=== PATIENT | male | born 1970 | race Caucasian/White ===

== ENCOUNTER 2019-01-08 09:38 | Inpatient (IN) | payer OTHER ==
[2019-01-08 11:10] VITALS: BMI 35.5
--- NOTE | 2019-01-08 11:59 | HP ---
CIWA Score Nausea/Vomitin-No Nausea/No Vomiting Muscle Tremors: 4-Moderate,w/Arms Extend Anxiety: 3 Agitation: 3 Paroxysmal Sweats: 3 Orientation: 0-Oriented Tacttile Disturbances: 0-None Auditory Disturbances: 0-None Visual Disturbances: 0-None Headache: 2-Mild CIWA-Ar Total Score: 15 - Admission Criteria OASAS Guidelines: Admission for Medically Managed Detox: Requires at least one of the followin. CIWA greater than 12 2. Seizures within the past 24 hours 3. Delirium tremens within the past 24 hours 4. Hallucinations within the past 24 hours 5. Acute intervention needed for co occurring medical disorder 6. Acute intervention needed for co occurring psychiatric disorder 7. Severe withdrawal that cannot be handled at a lower level of care (continued vomiting, continued diarrhea, abnormal vital signs) requiring intravenous medication and/or fluids 8. Admission ROS [facility] - HPI Chief Complaint: I need detox. I need help. Allergies/Adverse Reactions: Allergies Allergy/AdvReac Type Severity Reaction Status Date / Time No Known Allergies Allergy Verified 01/08/19 10:52 History of Present Illness: pt is a 48yrold male with a history of alcohol dependence seeking detox for treatment. Pt states he was [facility] ER for detox from alcohol and d/c today and brought inhere from our outreach drivers. Exam Limitations: No Limitations - Ebola screening Have you traveled outside of the country in the last 21 days: No Have you had contact with anyone from an Ebola affected area: No Have you been sick,other than usual withdrawal symptoms: No Do you have a fever: No - Review of Systems Constitutional: Chills, Night Sweats, Changes in sleep EENT: reports: Other (gestational nasal tube dysfuction) Respiratory: reports: No Symptoms reported Cardiac: reports: Syncope GI: reports: Poor Appetite, Poor Fluid Intake : reports: No Symptoms Reported Musculoskeletal: reports: No Symptoms Reported Integumentary: reports: Flushing, Sweating Neuro: reports: Headache, Tingling, Tremors Endocrine: reports: Flushing, Intolerance to Cold, Intolerance to Heat Hematology: reports: No Symptoms Reported Psychiatric: reports: Judgement Intact, Mood/Affect Appropiate, Orientated x3, Agitated, Anxious Other Systems: Reviewed and Negative Patient History - Patient Medical History Hx Anemia: No Hx Asthma: No Hx Chronic Obstructive Pulmonary Disease (COPD): No Hx Cancer: No Hx Cardiac Disorders: No Hx Congestive Heart Failure: No Hx Hypertension: No Hx Hypercholesterolemia: No Hx Pacemaker: No HX Cerebrovascular Accident: No Hx Seizures: No Hx Dementia: No Hx Diabetes: No Hx Gastrointestinal Disorders: No Hx Liver Disease: No Hx Genitourinary Disorders: No Hx Sexually Transmitted Disorders: No Hx Renal Disease (ESRD): No Hx Thyroid Disease: No Hx Human Immunodeficiency Virus (HIV): No Hx Hepatitis C: No Hx Depression: Yes Hx Suicide Attempt: Yes (teenager no S/H ideation today. ) Hx Bipolar Disorder: No Hx Schizophrenia: Yes Other Medical History: PTSD - Patient Surgical History Past Surgical History: Yes Other Surgical History: torn b/l biceps 2017 - PPD History Previous Implant?: No Documented Results: Positive w/o proof Implanted On Prior [facility] Admission?: No PPD to be Administered?: No - Reproductive History Patient is a Female of Child Bearing Age (11 -55 yrs old): No - Smoking Cessation Smoking history: Current every day smoker Have you smoked in the past 12 months: Yes Aproximately how many cigarettes per day: 10 Hx Chewing Tobacco Use: No Initiated information on smoking cessation: Yes 'Breaking Loose' booklet given: 01/08/19 - Substance & Tx. History Hx Alcohol Use: Yes Hx Substance Use: Yes Substance Use Type: Alcohol, Cocaine Hx Substance Use Treatment: Yes (last detox 15yrs ago) - Substances abused Alcohol Substance route: Oral Frequency: Daily Amount used: 1 1/2 bottle whisky Age of first use: 16 Date of last use: 01/07/19 Cocaine Substance route: Smoking Frequency: Daily Amount used: 2 BAGS Age of first use: 16 Date of last use: 01/06/19 Family Disease History - Family Disease History Family History: Denies Family Disease History: CA: Father (in remission), Sister (in remission) Admission Physical Exam BHS - Vital Signs Vital Signs: Vital Signs - 24 hr 01/08/19 10:54 Temperature 97.0 F L Pulse Rate 84 Respiratory 18 Rate Blood Pressure 131/86 - Physical General Appearance: Yes: Appropriately Dressed, Moderate Distress, Obese, Tremorous, Irritable, Sweating HEENTM: Yes: Hearing grossly Normal, Normal Voice, Rhinorrhea Respiratory: Yes: Lungs Clear, Normal Breath Sounds, No Respiratory Distress Neck: Yes: No masses,lesions,Nodules Breast: Yes: Within Normal Limits Cardiology: Yes: Regular Rhythm, Regular Rate, S1, S2 Abdominal: Yes: Normal Bowel Sounds, Non Tender, Soft Genitourinary: Yes: Within Normal Limits Back: Yes: Normal Inspection Musculoskeletal: Yes: Gait Steady, Back pain Extremities: Yes: Normal Capillary Refill, Non-Tender, Tremors Neurological: Yes: Fully Oriented, Alert, Normal Response Integumentary: Yes: Normal Color Lymphatic: Yes: Within Normal Limits - Diagnostic (1) Alcohol dependence with uncomplicated withdrawal Current Visit: Yes Status: Chronic (2) Nicotine dependence Current Visit: Yes Status: Chronic Qualifiers: Nicotine product type: cigarettes Substance use status: uncomplicated Qualified Code(s): F17.210 - Nicotine dependence, cigarettes, uncomplicated Cleared for Admission [facility] - Detox or Rehab [facility] Level of Care: Medically Managed Detox Regimen/Protocol: Librium Claeared for Rehab Admission: No Breathalyzer - Breathalyzer Breathalyzer: 0 Urine Drug Screen - Test Device Lot number: [id number] Expiration date: 09/01/20 - Control Is test valid?: Yes - Results Drug screen NEGATIVE: No Urine drug screen results: THC-Marijuana, KAILEY-Cocaine, OXY-Oxycodone, BZO- Benzodiazepines Inpatient Rehab Admission - Rehab Decision to Admit Inpatient rehab admission?: No
[2019-01-08] MEDS ORDERED: ONDANSETRON *ODT* 4 MG TABLET SL PRN (12:14)
[2019-01-08] MEDS ORDERED: BISMUTH SUBSALICYLATE 262 MG/15 ML BTL PO PRN (12:14)
[2019-01-08] MEDS ORDERED: MAGNESIUM CITRATE 300 ML BOTTLE PO PRN (12:14)
[2019-01-08] MEDS ORDERED: MAGNESIUM HYDROX 2400MG/30ML ORAL SUSPENSION 30 ML CUP PO PRN (12:14)
[2019-01-08] MEDS ORDERED: ACETAMINOPHEN 325 MG TABLET (FP) PO PRN ×2 (12:14)
[2019-01-08] MEDS ORDERED: hydrOXYzine PAMOATE 25 MG CAPSULE (FP) PO PRN (12:14)
[2019-01-08] MEDS ORDERED: DICYCLOMINE HCL 10 MG CAPSULE PO PRN (12:14)
[2019-01-08] MEDS ORDERED: MAG HYDROX/AL HYDROX/SIMETH 30 ML UNIT-DOSE CUP PO PRN (12:14)
[2019-01-08] MEDS ORDERED: NICOTINE POLACRILEX 4 MG GUM BUC PRN (12:14)
[2019-01-08] MEDS ORDERED: chlordiazePOXIDE HCL 10 MG CAPSULE PO PRN (12:14)
[2019-01-08] MEDS ORDERED: MENTHOL/PHENOL 1 EACH UD MM PRN (12:14)
[2019-01-08] MEDS: chlordiazePOXIDE HCL 25 MG CAPSULE PO SCH ×2 (13:52→22:25)
[2019-01-08] MEDS: METHOCARBAMOL 500 MG TABLET PO PRN ×2 (13:54→22:27)
[2019-01-08 17:12] LABS: HEMATOCRIT 43.1 % (35.4-49); HEMOGLOBIN 14.3 GM/dL (11.7-16.9); MCH 30.1 pg (25.7-33.7); MCHC 33.1 g/dl (32.0-35.9); MEAN CELL VOLUME 90.9 fl (80-96); MEAN PLT VOLUME 9.6 fl (7.5-11.1); PLATELET COUNT 210 K/MM3 (134-434); RBC 4.74 M/mm3 (4.00-5.60); RDW 14.4 % (11.9-15.9); WHITE BLOOD COUNT 8.9 K/mm3 (4.0-10.0)
[2019-01-08 17:19] LABS: ALBUMIN 3.8 g/dl (3.4-5.0); ALK PHOS 69 U/L (45-117); ANION GAP 7 MMOL/L (8-16); BILIRUBIN,TOTAL 0.5 mg/dL (0.2-1); BLOOD UREA NITROGEN 16 mg/dL (7-18); CALCIUM 8.7 mg/dL (8.5-10.1); CHLORIDE 102 mmol/L (98-107); CO2 27 mmol/L (21-32); CREATININE 0.8 mg/dL (0.55-1.3); GLUCOSE,RANDOM 88 mg/dL (74-106); POTASSIUM 4.3 mmol/L (3.5-5.1); SGOT/AST 15 U/L (15-37); SGPT/ALT 20 U/L (13-61); SODIUM 137 mmol/L (136-145); TOT PROT 7.4 g/dl (6.4-8.2)
[2019-01-08] MEDS: MELATONIN 5 MG TABLETS PO PRN (22:25)
[2019-01-08] MEDS: THIAMINE HCL 100 MG TABLET (FP) PO SCH (22:25)
[2019-01-09] MEDS: chlordiazePOXIDE HCL 25 MG CAPSULE PO SCH (06:25)
[2019-01-09] MEDS: PRENATAL VITAMINS W/ FOLIC ACID TABLET (FP) PO SCH (10:23)
[2019-01-09] MEDS: NICOTINE 21 MG/24 HOURS TOPICAL PATCH TD SCH (10:23)
--- NOTE | 2019-01-09 11:25 | PN ---
[facility] CIWA - CIWA Score Nausea/Vomitin-Mild Nausea/No Vomiting Muscle Tremors: 3 Anxiety: 2 Agitation: 2 Paroxysmal Sweats: 1-Minimal Palms Moist Orientation: 1-Uncertain about Date Tacttile Disturbances: 0-None Auditory Disturbances: 0-None Visual Disturbances: 0-None Headache: 1-Very Mild CIWA-Ar Total Score: 11 [facility] Progress Note (SOAP) Subjective: mild muscle cramping encourage muscle relaxant prn Objective: 01/09/19 11:25 Vital Signs Temperature 97.5 F L 01/09/19 09:11 Pulse Rate 74 01/09/19 09:11 Respiratory Rate 18 01/09/19 09:11 Blood Pressure 116/80 01/09/19 09:11 O2 Sat by Pulse Oximetry (%) Laboratory Last Values WBC 8.9 K/mm3 (4.0-10.0) 01/08/19 12:25 RBC 4.74 M/mm3 (4.00-5.60) 01/08/19 12:25 Hgb 14.3 GM/dL (11.7-16.9) 01/08/19 12:25 Hct 43.1 % (35.4-49) 01/08/19 12:25 MCV 90.9 fl (80-96) 01/08/19 12:25 MCH 30.1 pg (25.7-33.7) 01/08/19 12:25 MCHC 33.1 g/dl (32.0-35.9) 01/08/19 12:25 RDW 14.4 % (11.9-15.9) 01/08/19 12:25 Plt Count 210 K/MM3 (134-434) 01/08/19 12:25 MPV 9.6 fl (7.5-11.1) 01/08/19 12:25 Sodium 137 mmol/L (136-145) 01/08/19 12:25 Potassium 4.3 mmol/L (3.5-5.1) 01/08/19 12:25 Chloride 102 mmol/L (98-107) 01/08/19 12:25 Carbon Dioxide 27 mmol/L (21-32) 01/08/19 12:25 Anion Gap 7 MMOL/L (8-16) L 01/08/19 12:25 BUN 16 mg/dL (7-18) 01/08/19 12:25 Creatinine 0.8 mg/dL (0.55-1.3) 01/08/19 12:25 Creat Clearance w eGFR 103.62 (>60) 01/08/19 12:25 Random Glucose 88 mg/dL (74-106) 01/08/19 12:25 Calcium 8.7 mg/dL (8.5-10.1) 01/08/19 12:25 Total Bilirubin 0.5 mg/dL (0.2-1) 01/08/19 12:25 AST 15 U/L (15-37) 01/08/19 12:25 ALT 20 U/L (13-61) 01/08/19 12:25 Alkaline Phosphatase 69 U/L (45-117) 01/08/19 12:25 Total Protein 7.4 g/dl (6.4-8.2) 01/08/19 12:25 Albumin 3.8 g/dl (3.4-5.0) 01/08/19 12:25 RPR Titer Nonreactive (NONREACTIVE) 01/08/19 12:25 lab noted Assessment: 01/09/19 11:25 alcohol withdrawal sx Plan: continue detox
--- NOTE | 2019-01-09 13:24 | CONSULT ---
[facility] Psychiatric Consult - Data Date of interview: 01/09/19 Admission source: [facility] Identifying data: First admission to [facility] for this 48 y/o male self-referred for detoxification (alcohol, cocaine). Examined at [address] [place] [address]. Patient is , a father of one, homelsss (resides in long-term), unemployed and supported on SSI benefits. Substance Abuse History: Confirmed by the patient in this interview. Details in current [facility] report : Smoking history: Current every day smoker. Have you smoked in the past 12 months: Yes. Aproximately how many cigarettes per day: 10. Hx Chewing Tobacco Use: No. Initiated information on smoking cessation: Yes. 'Breaking Loose' booklet given: 01/08/19. - Substance & Tx. History. Hx Alcohol Use: Yes. Hx Substance Use: Yes. Substance Use Type: Alcohol, Cocaine. Hx Substance Use Treatment: Yes (last detox 15yrs ago). - Substances abused. Alcohol. Substance route: Oral. Frequency: Daily. Amount used: 1 1/2 bottle whisky. Age of first use: 16. Date of last use: 01/07/19. Cocaine. Substance route: Smoking. Frequency: Daily. Amount used: 2 BAGS. Age of first use: 16. Date of last use: 01/06/19 Medical History: Patient endorses good general health. Psychiatric History: Patient admits to a history of multiple psychiatric hospitalizations. Not able to recall names of institutions or psychotropic medications. Mr Tijerina reports sporadic attendance to an OPD program in [facility] ( name not recalled). Diagnosed with Schizophrenia + PTSD. No reported history of suicide attempts. Physical/Sexual Abuse/Trauma History: Stressors : lanette whitehead (October 2017 ) from complications of diabetes mellitus, homelessness, lack of vocational skills and of a friend in the [facility] tragedy on 06/13/2001. Additional Comment: Urine drug screen results: THC-Marijuana, KAILEY-Cocaine, OXY- Oxycodone, BZO-Benzodiazepines. Noted. Mental Status Exam - Mental Status Exam Alert and Oriented to: Time, Place, Person Patient Appearance: Unkempt, Disheveled Mood: Nervous, Withdrawn, Anxious Affect: Mood Congruent, Constricted Patient Behavior: Fatigued, Cooperative Speech Pattern: Clear Voice Loudness: Normal Thought Process: Goal Oriented Thought Disorder: Not Present Hallucinations: Denies Suicidal Ideation: Denies Homicidal Ideation: Denies Insight/Judgement: Poor Sleep: Fair Appetite: Good Muscle strength/Tone: Normal Gait/Station: Other (not observed; in bed for entire interview) Psychiatric Findings - Problem List ([place] 1, 2,3) (1) Alcohol dependence with uncomplicated withdrawal Current Visit: Yes Status: Acute (2) Cocaine dependence Current Visit: Yes Status: Chronic (3) Marijuana abuse Current Visit: Yes Status: Chronic (4) Nicotine dependence Current Visit: Yes Status: Chronic Qualifiers: Nicotine product type: cigarettes Substance use status: uncomplicated Qualified Code(s): F17.210 - Nicotine dependence, cigarettes, uncomplicated (5) Substance induced mood disorder Current Visit: Yes Status: Chronic (6) Post traumatic stress disorder (PTSD) Current Visit: Yes Status: Chronic Comment: By history. Not symptomatic at time of this examination. (7) Schizophrenia Current Visit: Yes Status: Chronic Comment: Self-report. (8) Non-compliance Current Visit: Yes Status: Chronic - Initial Treatment Plan Initial Treatment Plan: Examined with medical students in attendance (with patient's permission). Psychoeducation. Sleep hygiene. Support. Detoxification. AA meetings. Groups. Relapse prevention (MAT initiatives) : discussed in this session. Medication reconciliation : no home medications. Observation.
[2019-01-09] MEDS: METHOCARBAMOL 500 MG TABLET PO PRN (14:06)
[2019-01-09] MEDS: chlordiazePOXIDE 5 MG CAPSULE PO SCH ×2 (14:06→22:28)
--- NOTE | 2019-01-09 14:21 | EKG ---
Test Reason : Blood Pressure : / mmHG Vent. Rate : 067 BPM Atrial Rate : 067 BPM P-R Int : 152 ms QRS Dur : 100 ms QT Int : 390 ms P-R-T Axes : 050 044 043 degrees QTc Int : 412 ms NORMAL SINUS RHYTHM NORMAL ECG NO PREVIOUS ECGS AVAILABLE Confirmed by MD Tae, Wilfrido ([id number]) on 01/09/2019 2:20:38 PM Referred By: Confirmed By:Wilfrido Strong MD
[2019-01-09] MEDS: IBUPROFEN 400 MG TABLET (FP) PO PRN (17:53)
[2019-01-09] MEDS ORDERED: hydrOXYzine HCL 25 MG TABLET (FP) PO PRN (18:55)
[2019-01-09] MEDS: THIAMINE HCL 100 MG TABLET (FP) PO SCH (22:28)
[2019-01-09] MEDS: MELATONIN 5 MG TABLETS PO PRN (22:29)
[2019-01-10] MEDS: chlordiazePOXIDE 5 MG CAPSULE PO SCH (06:13)
[2019-01-10] MEDS: METHOCARBAMOL 500 MG TABLET PO PRN ×2 (06:14→12:58)
[2019-01-10] MEDS: IBUPROFEN 400 MG TABLET (FP) PO PRN (10:34)
[2019-01-10] MEDS: PRENATAL VITAMINS W/ FOLIC ACID TABLET (FP) PO SCH (10:34)
[2019-01-10] MEDS: NICOTINE 21 MG/24 HOURS TOPICAL PATCH TD SCH (11:16)
[2019-01-10] MEDS: chlordiazePOXIDE HCL 10 MG CAPSULE PO SCH ×2 (13:00→22:06)
[2019-01-10] MEDS ORDERED: chlordiazePOXIDE HCL 10 MG CAPSULE PO PRN (13:00)
--- NOTE | 2019-01-10 15:56 | PN ---
[facility] CIWA - CIWA Score Nausea/Vomitin-Mild Nausea/No Vomiting Muscle Tremors: 1-None Visible, but [place] Anxiety: 0-No Anxiety, at Ease Agitation: 0-Normal Activity Paroxysmal Sweats: No Perspiration Orientation: 0-Oriented Tacttile Disturbances: 0-None Auditory Disturbances: 0-None Visual Disturbances: 0-None Headache: 0-None Present CIWA-Ar Total Score: 2 [facility] Progress Note (SOAP) Subjective: pt states he is feeling tired, no other complaints O: Vital Signs - 24 hr 01/09/19 01/09/19 01/10/19 17:53 21:37 00:30 Temperature 97.1 F L 98.6 F Pulse Rate 90 82 Respiratory 16 18 18 Rate Blood Pressure 116/83 127/83 01/10/19 01/10/19 01/10/19 03:30 06:27 09:12 Temperature 96.7 F L 96.6 F L Pulse Rate 64 92 H Respiratory 20 18 20 Rate Blood Pressure 101/64 122/80 01/10/19 13:19 Temperature 96.0 F L Pulse Rate 88 Respiratory 18 Rate Blood Pressure 128/80 Laboratory Tests 01/08/19 01/08/19 01/08/19 12:25 12:25 12:25 WBC 8.9 RBC 4.74 Hgb 14.3 Hct 43.1 MCV 90.9 MCH 30.1 MCHC 33.1 RDW 14.4 Plt Count 210 MPV 9.6 Sodium 137 Potassium 4.3 Chloride 102 Carbon Dioxide 27 Anion Gap 7 L BUN 16 Creatinine 0.8 Creat Clearance w eGFR 103.62 Random Glucose 88 Calcium 8.7 Total Bilirubin 0.5 AST 15 ALT 20 Alkaline Phosphatase 69 Total Protein 7.4 Albumin 3.8 RPR Titer Nonreactive labs WNL VS WNL a/p: continue alcohol detox protocol- pt doing well
[2019-01-10] MEDS: MELATONIN 5 MG TABLETS PO PRN (22:06)
[2019-01-10] MEDS: THIAMINE HCL 100 MG TABLET (FP) PO SCH (22:06)
[2019-01-11] MEDS: chlordiazePOXIDE HCL 10 MG CAPSULE PO SCH (05:14)
[2019-01-11] MEDS: METHOCARBAMOL 500 MG TABLET PO PRN (05:14)
[2019-01-11 06:37] VITALS: BP 110/72; PULSE 82; TEMP 96.5
--- NOTE | 2019-01-11 16:24 | DS ---
[facility] Detox Discharge Summary Admission Date: 01/08/19 Discharge Date: 01/11/19 - History Present History: Alcohol Dependence Additional Comments: 48 years old male admitted on 01/08/19 for alcohol withdrawal stabilizaiton completed detox regimen [facility] - Physical Exam Results Vital Signs: Vital Signs Temperature 96.5 F L 01/11/19 06:36 Pulse Rate 82 01/11/19 06:36 Respiratory Rate 18 01/11/19 06:36 Blood Pressure 110/72 01/11/19 06:36 O2 Sat by Pulse Oximetry (%) Pertinent Admission Physical Exam Findings: alcohol withdrawal sx Laboratory Last Values WBC 8.9 K/mm3 (4.0-10.0) 01/08/19 12:25 RBC 4.74 M/mm3 (4.00-5.60) 01/08/19 12:25 Hgb 14.3 GM/dL (11.7-16.9) 01/08/19 12:25 Hct 43.1 % (35.4-49) 01/08/19 12:25 MCV 90.9 fl (80-96) 01/08/19 12:25 MCH 30.1 pg (25.7-33.7) 01/08/19 12:25 MCHC 33.1 g/dl (32.0-35.9) 01/08/19 12:25 RDW 14.4 % (11.9-15.9) 01/08/19 12:25 Plt Count 210 K/MM3 (134-434) 01/08/19 12:25 MPV 9.6 fl (7.5-11.1) 01/08/19 12:25 Sodium 137 mmol/L (136-145) 01/08/19 12:25 Potassium 4.3 mmol/L (3.5-5.1) 01/08/19 12:25 Chloride 102 mmol/L (98-107) 01/08/19 12:25 Carbon Dioxide 27 mmol/L (21-32) 01/08/19 12:25 Anion Gap 7 MMOL/L (8-16) L 01/08/19 12:25 BUN 16 mg/dL (7-18) 01/08/19 12:25 Creatinine 0.8 mg/dL (0.55-1.3) 01/08/19 12:25 Creat Clearance w eGFR 103.62 (>60) 01/08/19 12:25 Random Glucose 88 mg/dL (74-106) 01/08/19 12:25 Calcium 8.7 mg/dL (8.5-10.1) 01/08/19 12:25 Total Bilirubin 0.5 mg/dL (0.2-1) 01/08/19 12:25 AST 15 U/L (15-37) 01/08/19 12:25 ALT 20 U/L (13-61) 01/08/19 12:25 Alkaline Phosphatase 69 U/L (45-117) 01/08/19 12:25 Total Protein 7.4 g/dl (6.4-8.2) 01/08/19 12:25 Albumin 3.8 g/dl (3.4-5.0) 01/08/19 12:25 RPR Titer Nonreactive (NONREACTIVE) 01/08/19 12:25 lab noted - Treatment Hospital Course: Detox Protocol Followed, Detoxed Safely, Responded well, Discharged Condition Good, Rehab Referral Accepted Patient has Accepted a Rehab Referral to: [facility] - Medication Discharge Medications: Ambulatory Orders NK [No Known Home Medication] 01/08/19 - Diagnosis (1) Alcohol dependence with uncomplicated withdrawal Status: Acute (2) Nicotine dependence Status: Chronic Qualifiers: Nicotine product type: cigarettes Substance use status: uncomplicated Qualified Code(s): F17.210 - Nicotine dependence, cigarettes, uncomplicated (3) Substance induced mood disorder Status: Chronic - AMA Did Patient Leave Against Medical Advice: No
== END 2019-01-11 09:37 | disposition home or self-care (01) | DRG 774 ==
LOC: YASAS 09:38 → Y3N 12:33
PROVIDERS: ADMIT Surgery; ATTEND Surgery
PROC: HZ2ZZZZ Detoxification Services for Substance Abuse Treatment (ICD-10-PCS; principal; 2019-01-08)
DX: F10.230 Alcohol dependence with withdrawal, uncomplicated (principal); F14.20 Cocaine dependence, uncomplicated; F12.10 Cannabis abuse, uncomplicated; F17.210 Nicotine dependence, cigarettes, uncomplicated; F19.24 Other psychoactive substance dependence with psychoactive substance-induced mood disorder; F43.10 Post-traumatic stress disorder, unspecified; F20.9 Schizophrenia, unspecified; E66.9 Obesity, unspecified; Z68.35 Body mass index [BMI] 35.0-35.9, adult; Z91.19 Patient's noncompliance with other medical treatment and regimen; Z91.5 Personal history of self-harm
CPT/HCPCS: 36415; 80053; 85027; 86593; 93005; 93010